=== PATIENT | female | born 1955 | race American Indian/Alaskan Native ===

== ENCOUNTER 2021-01-10 08:13 | Day surgery (SDC) | payer MEDICARE, OTHER ==
[~2021-01-10 08:13] MED LIST: SODIUM CHLORIDE 0.9% 1000 ML 1,000 ML IV SCH
--- NOTE | 2021-01-10 09:42 | Anesthesia Consultation ---
Anesthesia Consult and Med Hx Date of service: 01/10/21 - Airway Anesthetic Teeth Evaluation: Crowns (Multiple missing teeth) ROM Head & Neck: Adequate Mental/Hyoid Distance: Inadequate Mallampati Class: Class II Intubation Access Assessment: Probably Good - Pulmonary Exam CTA: Yes - Pre-Operative Health Status ASA Pre-Surgery Classification: ASA3 Proposed Anesthetic Plan: MAC - Pulmonary Hx Smoking: No SOB: Yes (Uses Albuterol) COPD: No Home Oxygen Therapy: No Hx Sleep Apnea: Yes (2000, uses CPAP) - Cardiovascular System Hx Hypertension: Yes Hx Coronary Artery Disease: Yes Hx Angina: Yes (atypical) Hx Percutaneous Transluminal Coronary Angioplasty (PTCA): Yes Hx Pacemaker: No Hx Internal Defibrillator: No Hx Valvular Heart Disease: No Hx Peripheral Vascular Disease: No - Central Nervous System Hx Seizures: No CVA: No Hx Back Pain: No Hx Psychiatric Problems: Yes (anxiety) - Gastrointestinal Hx Gastroesophageal Reflux Disease: Yes (on omeprazole) - Endocrine Hx Renal Disease: No Hx Liver Disease: No Hx Insulin Dependent Diabetes: Yes Hx Non-Insulin Dependent Diabetes: No Hx Thyroid Disease: No - Hematic Hx Anemia: Yes - Other Systems Hx Alcohol Use: No Hx Cancer: No Hx Obesity: Yes (BMI- 41.2kg)
--- NOTE | 2021-01-10 09:43 | Anesthesia Day of Surgery ---
Anesthesia Day of Surgery - Day of Surgery Patient Examined: Yes Patient H&P Reviewed: Yes Patient is NPO: Yes Beta Blockers: No Cardiac Clearance: No Pulmonary Clearance: No
[2021-01-10] MEDS ORDERED: LIDOCAINE MPF (2%) 20 MG/1 ML VIAL 5 ML ONE (09:44)
[2021-01-10] MEDS ORDERED: ONDANSETRON 4 MG/2 ML INJ ONE (09:44)
[2021-01-10] MEDS ORDERED: fentaNYL 100 MCG/2 ML INJ ONE (09:44)
[2021-01-10] MEDS ORDERED: propofoL 200 MG/20 ML VIAL IV ONE (09:45)
--- NOTE | 2021-01-10 10:11 | Procedure Note ---
Date of procedure: 01/10/21 Pre-op diagnosis: Dysphagia/ H/o Scleroderma/ H/O Diabetes mellitus (type 2) Post-op diagnosis: other (Mild, Benign Esophageal Stenosis (s/p Esophageal, ballon dilation)/ Mild to Moderate Erosive esophagitis (R/O hutson's Esophagus)/R/O Eosinophilic Esophagitis/ Gastritis/ Gastric Nodules/ No Peptic Ulcer Disease was noted) Procedure: EGD with Biopsy and S/P Balloon dilation (20 mm) Anesthesia: MAC Surgeon: DAVID PÉREZ Estimated blood loss: minimal Pathology: list Specimen disposition: to lab Condition: stable Disposition: same day (Treat with Reglan and PPI. Avoid aspirin and NSAID for 4 days; otherwise resume home medication. follow up in 1 to 2 weeks ([phone]).)
--- NOTE | 2021-01-10 10:13 | Operative Report ---
PROCEDURES: Esophagogastroduodenoscopy with biopsy and esophageal balloon dilation. INDICATIONS: This is a 65-year-old female with an underlying history of scleroderma, diabetes mellitus type 2, who has a mild benign esophageal stenosis that required periodic esophageal dilation. DESCRIPTION OF PROCEDURE: The procedure was done after getting informed consent with MAC anesthesia. Instrument was passed through the hypopharynx into the esophagus, which showed some mild benign esophageal stenosis that was dilated at the end of the procedure with a 20 mm balloon that was maintained for a minute. There was some evidence of an irregular Z line and evidence of [id number] distal erosive esophagitis. Biopsies were done from the distal esophagus to rule out for Rios's esophagus and to assess for the severity of the erosive esophagitis. Few biopsies were done from the mid esophagus, rule out for eosinophilic esophagitis. The stomach showed gastric nodule and gastritis. No ulcers were noted in the straight or the retroverted view. The pylorus was patent. Duodenum in the first and second portion appeared normal. Biopsy was done from the gastric antrum, gastric body and angular incisura as well as from the gastric nodules that were in the gastric antrum with minimal bleeding. The patient tolerated the procedure well. There were no complications associated with the procedure. ASSESSMENT: Mild benign esophageal stenosis, status post esophageal dilation with a 20 mm balloon. The patient has an underlying history of scleroderma and diabetes mellitus type 2, [id number] erosive esophagitis, rule out Rios's esophagus, gastritis, gastric nodule and no peptic ulcer disease noted. PLAN: To treat the patient with PPI and Reglan. Have the patient avoid aspirin and aspirin-related products for the next few days and otherwise resume home medication and follow up in the office in 1-2 weeks' time. The procedure was done in the GI lab with assistance of the GI lab team, which included the GI nurse, the technical services managerMaurice and with assistance of anesthesia. [facility]# [id number] MAL/MILTON
--- NOTE | 2021-01-10 15:53 | Post Anesthesia Evaluation ---
- Post Anesthesia Evaluation Patient Participated: Yes Airway Patent: Yes Stable Respiratory Function: Yes Nausea/Vomiting: No Temp > 96.8F: Yes Pain Manageable: Yes Adequeate Hydration: Yes Anesthesia Complications: No Block Receding Appropriately: Not Applicable Patient on Ventilator: No
[2021-01-10 19:54] VITALS: BP 136/82
== END 2021-01-10 08:14 | disposition home or self-care (01) ==
LOC: GIO 08:13
DX: R47.02 Dysphasia (principal); K21.00 Gastro-esophageal reflux disease with esophagitis, without bleeding; K31.89 Other diseases of stomach and duodenum; I10 Essential (primary) hypertension; I25.10 Atherosclerotic heart disease of native coronary artery without angina pectoris; G47.30 Sleep apnea, unspecified; E11.9 Type 2 diabetes mellitus without complications; E66.9 Obesity, unspecified; Z79.4 Long term (current) use of insulin; Z79.899 Other long term (current) drug therapy; Z88.0 Allergy status to penicillin; Z88.8 Allergy status to other drugs, medicaments and biological substances; Z88.5 Allergy status to narcotic agent; Z98.890 Other specified postprocedural states
CPT/HCPCS: 43239; 43249; 82962; 88305; 88342; C1726; J2405; J2704; J3010; J7030